=== PATIENT | male | born 1980 | race Caucasian/White ===

== ENCOUNTER 2019-01-02 19:06 | Emergency (ER) | payer MEDICAID ==
[~2019-01-02] VITALS: Ht 167.6 cm; Wt 121.6 kg
[2019-01-02 19:08] VITALS: Ht 167.6 cm; Wt 121.6 kg
[2019-01-02 21:17] VITALS: BP 142/83
== END 2019-01-02 21:17 | disposition home or self-care (01) ==
LOC: ED 19:06
DX: S80.02XA Contusion of left knee, initial encounter (principal); W10.8XXA Fall (on) (from) other stairs and steps, initial encounter; Y93.89 Activity, other specified; Y92.89 Other specified places as the place of occurrence of the external cause; Y99.8 Other external cause status
CPT/HCPCS: J1885; Q0092